=== PATIENT | female | born 1960 | race Caucasian/White ===

== ENCOUNTER 2017-01-04 16:48 | Emergency (ER) | payer OTHER ==
[2017-01-04 17:57] LABS: HEMOGLOBIN 11.3 gm/dl (12.3-15.3); RED BLOOD COUNT 4.73 M/UL (4.00-5.10); WHITE BLOOD COUNT 10.5 K/UL (4.5-11.0)
== END 2017-01-04 21:37 | disposition home or self-care (01) ==
LOC: ER1 16:48
PROVIDERS: Specialist/Technologist Athletic Trainer
DX: R10.819 Abdominal tenderness, unspecified site (principal); R39.198 Other difficulties with micturition; E11.22 Type 2 diabetes mellitus with diabetic chronic kidney disease; I12.0 Hypertensive chronic kidney disease with stage 5 chronic kidney disease or end stage renal disease; N18.6 End stage renal disease; J44.9 Chronic obstructive pulmonary disease, unspecified; I25.119 Atherosclerotic heart disease of native coronary artery with unspecified angina pectoris; Z88.0 Allergy status to penicillin; Z79.4 Long term (current) use of insulin; Z79.82 Long term (current) use of aspirin; Z79.899 Other long term (current) drug therapy; Z96.41 Presence of insulin pump (external) (internal)
CPT/HCPCS: 36415; 80053; 81001; 82150; 83690; 85025; 99284

== ENCOUNTER → 2017-01-04 | Outpatient (CLI) | payer OTHER | LOC: US 15:30 | DX: N18.3 Chronic kidney disease, stage 3 (moderate) (principal) ==

== ENCOUNTER → 2020-10-11 | Outpatient (CLI) | payer OTHER ==
[~2020-10-11] MED LIST: ADMELOG SO100 UNIT/1 SC; ALPRAZOLAM0.5 MG PO; ASPIRIN EC81 MG PO; BUSPAR 10MG10 MG PO; CRESTOR5 MG PO; FENOFIBRATE145 MG PO; ISOSORBIDE MONO30 MG PO; LEVOXYL75 MCG PO; LISINOPRIL10 MG PO; NEURONTIN800 MG PO; NORCO 10-325 T1 EACH PO; NORVASC5 MG PO; ROPINIROLE HCL2 MG PO; SILVADENE CREAM20 GM TOP; TRAZODONE HCL50 MG PO; TRESIBA FL100 UNIT/1 SQ; VISTARIL 50 MG50 MG PO; VORT20TA PO; ZEBUTAL 50-3251 EACH PO
== END ==
LOC: EMI 10-07 16:00
DX: M84.375D Stress fracture, left foot, subsequent encounter for fracture with routine healing (principal); G57.62 Lesion of plantar nerve, left lower limb; M85.472 Solitary bone cyst, left ankle and foot
CPT/HCPCS: 73718